=== PATIENT | female | born 1950 | race Caucasian/White ===

== ENCOUNTER 2023-06-11 12:03 | Emergency (ER) | payer MEDICARE, OTHER, SELFPAY ==
[2023-06-11 12:06] VITALS: BP 150/89
[2023-06-11 13:28] LABS: % Basophils 0.4 % (0-2); % Eosinophils 0.5 % (0-6); % Immature Granulocytes 0.2 % (0-0.5); % Lymphocytes 20.9 % (20.5-51.1); % Monocytes 10.3 % (1.7-9.3); % Neutrophils 67.7 % (42.2-75.2); Absolute Lymphocytes 1.2 10^3/uL (1.2-3.4); Absolute Monocytes 0.6 10^3/uL (0.1-0.6); Absolute Neutrophils 3.7 10^3/uL (1.4-6.5); Hematocrit 43.9 % (37.0-47.0); Hemoglobin 14.5 g/dL (12.0-16.0); Mean Corpuscular Hgb 26.3 pg (27.0-31.0); Mean Corpuscular Volume 79.7 fL (81.0-99.0); Mean Platelet Volume 9.7 fL (7.4-10.4); Nucleated Red Blood Cells % 0 %; Platelet Count 274 10^3/uL (130-400); Red Blood Cell Count 5.51 10^6/uL (4.20-5.40); Red Cell Dist. Width 14.6 % (11.5-14.5); White Blood Cell Count 5.5 10^3/uL (4.8-10.8)
--- NOTE | 2023-06-11 13:33 | ED.GENMED ---
Addendum entered and electronically signed by BRANDO Wilkins 06/14/23 07:50:
Urine cx + e coli however pt was seen here for diarrhea. I spoke with pt at home. She has no UTI symptoms at all. Feeing better diarrhea getting better. Discussed w/ ED attending. Since pt has no UTI s/s and had presented with diarrhea we will
hold off on treatment. I did speak with patient at home as discussed and instructed patient however to follow-up for repeat urinalysis with PCP in the next several days.
Original Note:
History of Present Illness
General
Chief Complaint: Abdominal Symptoms
Source: patient
Exam Limitations: none
Time Seen by Provider: 06/11/23 13:23
Travel History
Have you had any contact with someone who has COVID-19?: No
Do you have any symptoms of coronavirus? Fever > 100 degrees, chills, cough, shortness of breath, sore throat, loss of taste or smell, muscle aches, or headache?: No
History of Present Illness
History of Present Illness:
73 year old female presents with 4-5 days of loose, watery stool as well as fatigue and myalgias. No measurable fever. No significant abdominal pain. She denies any blood in the stool. She vomited once at the onset of her illness. She states
anytime she eats or drinks anything it comes out as watery stool. No recent antibiotics or hospitalizations. No known sick contacts. No other complaints at this time
Past History
Past History
ED Past Medical History: GERD, Hypercholesterolemia, NIDDM and Other (TIA, migraine, diverticulitis, endometriosus, anxiety)
ED Past Surgical History: Negative Cardiac
Social History
Tobacco: Non-smoker
Alcohol: None
Drug: None
Personal:
Living: with family
Employment: Retired
Family History
Family History: Diabetes
Phy Exam
Physical Exam
Physical Exam:
General: Well-appearing female no acute respiratory distress
HEENT: Normocephalic atraumatic neck supple
Heart: Regular rate and rhythm no murmurs
Lungs: Clear to auscultation bilaterally no wheezing
Abdomen is soft nontender nondistended no guarding or rebound normal bowel sounds
Extremities: No cyanosis
Course
Orders/Labs/Results
Orders:
Orders
06/11/23 13:21
Complete Blood Count/With Diff Urgent
Comprehensive Metabolic Panel Urgent
Lipase Urgent
06/11/23 13:32
0.9% Sodium Chloride 1000 ml [Nss] 1,000 ml IV BOLUS
06/11/23 15:28
Urinalysis Reflex To Culture Urgent
Date Specimen was Collected: 06/11/23
Time Specimen was Collected: 15:26
Norovirus by PCR Urgent
LEO Source: Feces/Stool
Specimen Description:
Date Specimen was Collected: 06/11/23
Time Specimen was Collected: 15:24
STOOL [C difficile Antigen & Toxins] Urgent
LEO Source: Feces/Stool
Specimen Description:
Date Specimen was Collected: 06/11/23
Time Specimen was Collected: 15:24
Stool Culture Urgent
LEO Source: Feces/Stool
Specimen Description:
Date Specimen was Collected: 06/11/23
Time Specimen was Collected: 15:24
Abnormal Lab Results
06/11/23
13:21
RBC 5.51 H 10^6/uL
(4.20-5.40)
MCV 79.7 L fL
(81.0-99.0)
MCH 26.3 L pg
(27.0-31.0)
RDW 14.6 H %
(11.5-14.5)
Monocytes % 10.3 H %
(1.7-9.3)
Sodium 134 L mmol/L
(135-145)
Potassium 3.4 L mmol/L
(3.5-5.1)
Chloride 108 H mmol/L
(98-107)
Carbon Dioxide 16 L mmol/L
(22-30)
BUN 30 H mg/dl
(7-17)
Glucose 188 H mg/dl
(70-99)
AST 39 H U/L
(14-36)
06/11/23 13:21
06/11/23 13:21
Vital Signs
Initial and Last Documented VS:
Initial Vital Signs
Temp Pulse Resp BP Pulse Ox
98.2 F 104 16 150/89 98
06/11/23 12:06 06/11/23 12:06 06/11/23 12:06 06/11/23 12:06 06/11/23 12:06
Last Documented Vital Signs
Temp Pulse Resp BP Pulse Ox
98.2 F 104 16 150/89 98
06/11/23 12:06 06/11/23 12:06 06/11/23 12:06 06/11/23 12:06 06/11/23 12:06
MDM/Problems Addressed
Differential Diagnosis Includes:
Diarrhea. Question viral illness. Check for electrolyte abnormality. Does look dry on exam. Will hydrate. Abdomen is benign. No indication for urgent imaging at this time. Stool studies are pending
*Critical Care Note
Total Time (30-74mins, 75-104mins- exclusive of procedures): Not Applicable
Update Note
Update Note:
Patient feeling better after IV hydration. Labs reviewed. Sodium 134 potassium 3.4. Creatinine is 0.7. Patient was able provide a stool culture these are pending. Suspect underlying viral illness recommended plenty clear liquids and a brat
diet. No indication for admission stable for discharge
ED Attending Note
-
Portions of this chart may have been created with voice recognition software.� Occasional wrong word or��sound alike� substitutions may have occurred due to the inherent limitations of voice recognition software.
Discharge Plan
Departure
Patient Disposition: Home (Routine Discharge)
Date of Disposition: 06/11/23
Time of Disposition: 15:41
Patient with high blood pressure during this ER visit?: No
Discharge Problem:
Diarrhea
Instructions: Diarrhea in adolescents and adults
Prescriptions:
No Action
fenofibrate nanocrystallized 145 MG tablet
160 mg PO 0800
famotidine 20 MG tablet
20 mg PO BID
glipizide 10 MG tablet extended release 24hr
15 tab PO 1800
glipizide 10 MG tablet extended release 24hr
10 mg PO 0800
clopidogrel 75 MG tablet
75 mg PO 0800
lorazepam 0.5 MG tablet
0.25 - 0.5 mg PO PRN PRN (Reason: Anxiety)
sertraline 100 MG tablet
200 mg PO DAILY
B complex with C 20-folic acid [Mynephrocaps] 1 MG capsule
1 tab PO
cholecalciferol (vitamin D3) [Vitamin D3] 1,000 UNIT capsule
2,000 units PO DAILY
rosuvastatin 5 MG tablet
5 mg PO QPM
meloxicam 7.5 MG tablet
7.5 mg PO 1800
methylcellulose (laxative) [Citrucel] 500 MG tablet
1,000 mg PO DAILY
calcium carbonate-vitamin D3 1 EACH tablet
1 ea PO DAILY
Iron
65 mg PO DAILY
Ozempic
2 mg SC .WEEKLY
hydrocodone-acetaminophen [Gulliver] 1 EACH tablet
1 ea PO Q4HPRN PRN (Reason: pain 4>10 ) Qty: 20 0RF
Rx Instructions:
take with daily stool softener
Referrals:
Mendoza Grayson DO [Family Provider] -
Activity Restrictions/Additional Instructions:
Drink plenty of clear liquids. Advance to brat diet as tolerated. Please return here for worsening symptoms. You should receive a call if your stool cultures are positive
Interventions
Interventions:
*Risk Screen - Suicide Last Done: 06/11/23 12:06
*General Assessment Last Done: 06/11/23 12:06
*Neglect/Abuse Screening Last Done: 06/11/23 14:23
*ED COVID-19 Vaccine History Last Done: 06/11/23 12:06
BQ-Dhpaju-Givwofgaux Assessment Last Done: 06/11/23 14:23
Discharge Date and Time
Print Language: NIGERIAN
[2023-06-11] MEDS: NSS 1000 IV (13:35)
[2023-06-11 13:40] LABS: ALT (SGPT) 32 U/L (0-35); AST (SGOT) 39 U/L (14-36); Albumin 4.6 g/dl (3.5-5.0); Alkaline Phosphatase 61 U/L (38-126); Blood Urea Nitrogen 30 mg/dl (7-17); Carbon Dioxide 16 mmol/L (22-30); Chloride 108 mmol/L (98-107); Glucose 188 mg/dl (70-99); Lipase 153 U/L (23-300); Potassium 3.4 mmol/L (3.5-5.1); Sodium 134 mmol/L (135-145); Total Bilirubin 0.4 mg/dl (0.2-1.3); Total Protein 7.3 g/dl (6.3-8.2); eGFR > 60.00
[2023-06-11 16:07] LABS: Urine Albumin Trace (Neg - Trace); Urine Bilirubin 1+ (Negative); Urine Character Clear (Clear); Urine Color Yellow; Urine Glucose Negative (Negative); Urine Ketone Negative (Negative); Urine Leukocyte 2+ (Negative); Urine Nitrite Negative (Negative); Urine Occult Blood 1+ (Negative); Urine Urobilinogen Negative (Neg - 1+)
[2023-06-11 16:15] LABS: Urine Squamous Cell 0-2 /LPF (Few)
[2023-06-11 16:17] LABS: Urine Bacteria Many (Negative)
[2023-06-11 16:18] LABS: Urine White Cell 26-30 /HPF (0-5)
== END 2023-06-11 16:35 | disposition home or self-care (01) ==
LOC: EMR 12:03
PROVIDERS: Physician Assistant; EMERGENCY PHYSICIAN Emergency Medicine; FAMILY PHYSICIAN Family Medicine
DX: R19.7 Diarrhea, unspecified (principal); R53.83 Other fatigue; R11.10 Vomiting, unspecified; M79.10 Myalgia, unspecified site
CPT/HCPCS: 99284; 96360; 80053; 81003; 81015; 83690; 85025; 87045; 87046; 87077; 87086; 87186; 87324; 87427; 87449; 87798

== ENCOUNTER → 2023-08-17 12:27 | Outpatient (REF) | payer MEDICARE, OTHER, SELFPAY | LOC: RCS 12:27 | PROVIDERS: ATTENDING PHYSICIAN Internal Medicine; FAMILY PHYSICIAN Family Medicine | DX: R00.2 Palpitations (principal) | CPT/HCPCS: 93225; 93226 ==

== ENCOUNTER → 2023-09-08 13:39 | Outpatient (REF) | payer MEDICARE, OTHER, SELFPAY | LOC: RCS 13:39 | PROVIDERS: ATTENDING PHYSICIAN Internal Medicine; FAMILY PHYSICIAN Family Medicine | DX: R00.2 Palpitations (principal) | CPT/HCPCS: 93306 ==

== ENCOUNTER → 2023-09-14 06:34 | Day surgery (SDC) | payer MEDICARE, OTHER, SELFPAY ==
[2023-09-14 07:40] LABS: Glucose - Point of Care 135 mg/dl (70-99)
== END ==
LOC: GI 06:34
PROVIDERS: ATTENDING PHYSICIAN Internal Medicine Gastroenterology; FAMILY PHYSICIAN Family Medicine
DX: Z12.11 Encounter for screening for malignant neoplasm of colon (principal); K57.30 Diverticulosis of large intestine without perforation or abscess without bleeding; K63.5 Polyp of colon; Z86.010 Personal history of colon polyps
CPT/HCPCS: 45385; 88305; 82962

== ENCOUNTER → 2023-10-22 11:24 | Outpatient (REF) | payer MEDICARE, OTHER, SELFPAY | LOC: WDC 11:24 | PROVIDERS: ATTENDING PHYSICIAN Internal Medicine Hematology & Oncology; FAMILY PHYSICIAN Family Medicine | DX: Z12.31 Encounter for screening mammogram for malignant neoplasm of breast (principal); C50.912 Malignant neoplasm of unspecified site of left female breast; Z79.811 Long term (current) use of aromatase inhibitors; Z85.3 Personal history of malignant neoplasm of breast | CPT/HCPCS: 77063; 77067; 77080 ==

== ENCOUNTER → 2024-11-01 13:32 | Outpatient (REF) | payer MEDICARE, OTHER, SELFPAY | LOC: WDC 13:32 | PROVIDERS: ATTENDING PHYSICIAN Internal Medicine Hematology & Oncology; FAMILY PHYSICIAN Family Medicine | DX: Z12.31 Encounter for screening mammogram for malignant neoplasm of breast (principal) | CPT/HCPCS: 77063; 77067 ==